=== PATIENT | male | born 1965 | race African-American/Black ===

== ENCOUNTER → 2019-03-24 | Outpatient (CLI) | payer OTHER ==
[~2019-03-24] MED LIST: BACL10TA PO; IOHEXOL 180 MG/ML 10 ML VIAL. ONE; MELO7.5T29 PO; methylPREDNISolone ACETATE 40 MG/ML VIAL. ONE; methylPREDNISolone ACETATE 80 MG/ML VIAL. ONE
--- NOTE | 2019-03-25 09:53 | PAIN ---
DATE OF SERVICE: 03/24/2019 INITIAL CONSULTATION FOR PAIN CLINIC CHIEF COMPLAINT: Low back and bilateral lower extremity pain, right greater than left. 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 The patient reports significant pain in the back since that time on and off in intensity, but responded fairly well to the physical therapy, chiropractic treatment in the past, most recently physical therapy since 2011. He also had trigger point injections, epidural injections as recently as 04/2008, which has done quite well also. The patient reports he is taking baclofen as well as meloxicam, which both do decrease the pain, but only by a moderate extent. The patient reports no loss of motor function in the lower extremities, but significant fatigability, especially of the right lower extremity greater than the left. The patient reports the pain is sharp, stabbing, throbbing in the low back, radiating to the lower back, tingling, numbness, and aching, mostly in the posterior gluteus, posterior lateral thigh, lateral anterior thigh, especially on the right side. The patient reports some on the left as well to the knee, but all the way to the ankle on the right, both anterior and posterior aspect of the lower extremity, mostly in the anterior thigh and posterior gluteus. The patient rates his disability from 0-10, 10 being the worst, is a 7 with family home responsibilities and sexual behavior, 8 with recreation and social activity and occupation as well as self-care activities and 6 with life support activities. The patient did have an MRI scan of the lumbar spine showing significant facet bilaterally at L3-L4 and L4-L5 and lesser extent on the right L2-L3 with L3-L4 generalized bulging in the annulus with moderate pronounced hypertrophic degenerative facet joint changes bilaterally with thickening of ligamentum flavum, L4-L5 shows mild loss of disk height and signal intensity with some generalized bulging of the annulus as well with relatively severe hypertrophic degenerative facet joint changes bilaterally, worse on the right. PAST MEDICAL HISTORY: Significant for dizziness, hearing loss, peptic ulcers. Previous exposure to tuberculosis, cigarette smoking, quit 30 years ago. PREVIOUS SURGERY: No previous surgery. CURRENT MEDICATIONS: Include baclofen and meloxicam. ALLERGIES: THE PATIENT IS ALLERGIC TO TOPICAL IODINE AND ASPIRIN. FAMILY HISTORY: Significant for heart disease. SOCIAL HISTORY: The patient does not smoke, quit many years ago, drinks about 6 alcoholic beverages on the weekend only. Does not use any illegal, illicit, or recreational drugs, is single. Lives locally in [place], [place]. REVIEW OF SYSTEMS: The patient's review of systems is positive for those items mentioned in history of present illness. All systems reviewed and otherwise negative. It is complete, full and well documented on the patient's chart. PHYSICAL EXAMINATION: VITAL SIGNS: The patient's blood pressure is 133/88, pulse 63, respirations 18, temperature 98.3 degrees Fahrenheit. Height is 6 feet 3 inches. Weight 224 pounds. GENERAL: The patient is awake, alert, oriented, appropriate, very pleasant demeanor. HEENT: Shows normocephalic, atraumatic. Extraocular movements are intact and symmetrical. Oral cavity: Mucous membranes moist and pink. Dentition is intact. NECK: Shows anterior throat supple without palpable lymphadenopathy noted. Swallow reflex symmetrical. CHEST: Shows normal on inspection. Breath sounds clear to auscultation bilaterally. HEART: Shows S1, S2 clear. No murmurs auscultated. ABDOMEN: Soft, nontender, nondistended. No palpable organomegaly is noted. No rebound or guarding demonstrated. BACK: Shows spine grossly in the midline. Normal appearing thoracic kyphosis, some minor flattening of lumbar lordotic curvature. Lumbar paraspinous muscle shows symmetrical on inspection, on palpation shows some moderate tenderness throughout the upper, middle and lower distribution of paraspinous muscles, but only diffusely without radiation. The patient has good rotational motion of lumbar spine, both laterally greater than 10 degrees right and left as well as extension greater than 10 degrees, forward flexion 45 degrees without significant pain reported. No tenderness over the spinous processes, sacrum or sacroiliac regions. EXTREMITIES: Lower extremities show deep tendon reflexes at 2+ in the patellar, 1+ tendo-calcaneus tendons. Motor exam is strong with 5/5 dorsiflexion, extension, quadriceps and hamstring flexion symmetrical. Peripheral pulses are 1+ posterior tibia. No peripheral edema is noted bilaterally. Lower extremities are warm and dry to touch, equal in color and appearance. The patient's straight leg raise noted to be mildly positive on the right only about 45 degrees, decreased with knee flexion, left side is negative. Gaenslen's and Roberto's maneuvers are negative bilaterally. Peripheral pulses are 1+ posterior tibia. No peripheral edema is noted. The patient is able to stand, stand on his toes without significant difficulty or loss of balance, walks with a normal appearing gait, but does appear to favor the right lower extremity mildly, not using any assistive devices to ambulate such as canes or walkers. The patient's skin shows warm and dry, good turgor. No edema. No sores, rashes, or bruising. IMPRESSION: 1. This is a 53-year-old male with long history of low back pain, bilateral lower extremity pain, worse now on the right in a radicular fashion, but in the left as well. 2. MRI scan of lumbar spine as noted. 3. History of dizziness. PLAN: Options were discussed with the patient including conservative medical managements, physical therapies and interventional techniques and he would like to pursue interventional techniques as he has done very well with these in the past. We discussed a lumbar epidural steroid injection using description as well as anatomical models to describe the procedure. Risks were then discussed including, but not limited to bleeding, infection, possibility of epidural hematoma, subsequent neurological compromise, dural puncture, headaches, spinal cord and/or nerve damage, side effects of steroid medication and poor results regarding pain control. The patient understands and wished to proceed. The patient will return to the clinic in approximately 2 weeks for followup. He was counseled as to return appointment, activity level and side effects to be aware of. DIAGNOSES: Lumbar radiculopathy with lumbar degenerative disk disease. PROCEDURE: Lumbar epidural steroid injection, translaminar approach at the L4-L5 level using C-arm fluoroscopic guidance under sterile prep and drape using local anesthetic. MEDICATION INJECTED: A total of 120 mg Depo-Medrol plus 10 mL of preservative-free normal saline and 2 mL of contrast. CONDITION AT DISCHARGE: Stable. The patient tolerated procedure well, had no complications. IVETT BLANCHARD MD DR: NII/landry JOB#: [id number] / [id number]
== END ==
LOC: EDSEX 14:07 → PNCL 14:07
PROVIDERS: ATTEND Anesthesiology
DX: M51.16 Intervertebral disc disorders with radiculopathy, lumbar region (principal); K27.7 Chronic peptic ulcer, site unspecified, without hemorrhage or perforation; H91.90 Unspecified hearing loss, unspecified ear; Z87.891 Personal history of nicotine dependence; Z88.8 Allergy status to other drugs, medicaments and biological substances; Z72.89 Other problems related to lifestyle; Z86.11 Personal history of tuberculosis
CPT/HCPCS: 62323; J1030; J1040; Q9965

== ENCOUNTER → 2019-04-07 | Outpatient (CLI) | payer OTHER ==
[~2019-04-07] MED LIST changes: +CHOL500050 PO; -IOHEXOL 180 MG/ML 10 ML VIAL. ONE; -methylPREDNISolone ACETATE 40 MG/ML VIAL. ONE; -methylPREDNISolone ACETATE 80 MG/ML VIAL. ONE
--- NOTE | 2019-04-07 16:54 | PAIN ---
DATE OF SERVICE: 04/07/2019 PROGRESS NOTE FOR PAIN CLINIC DIAGNOSIS: Lumbar radiculopathy with lumbar degenerative disk disease. HISTORY OF PRESENT ILLNESS: The patient is a 53-year-old male who returns for followup status post lumbar epidural steroid injection x 1. The patient reports a 75-80% improvement in his low back and right lower extremity pain. The patient reports he has been increasing his activity with greater ease and comfort, walking greater distances, doing activity. He is doing some physical therapies as well right now and is doing much better. The patient reports that he has been walking and does not awake him up from sleep any longer, sleeping is much better through the night about 6 hours at a time without the pain disturbing. The patient reports his pain is a 9 on a scale of 10 at its worst over the past week, 6 on average, 3 at its least, and is 3 today. The patient reports it is sharp, tingling, burning, radiating into the low back, posterior gluteus, posterolateral thigh, lateral anterior thigh, medial thigh, more on the right than the left, but again significantly reduced with much less intensity than previously. The patient reports no new motor or sensory deficits. No new bowel or bladder incontinence or other complaints. He is still using his TENS unit on his back, which he feels is helpful as well. PHYSICAL EXAMINATION: VITAL SIGNS: Blood pressure 132/90, pulse 69, respirations 18, temperature 98.3 degrees Fahrenheit, weight is 224 pounds. GENERAL: The patient is awake, alert, oriented, appropriate, very pleasant demeanor. HEENT: Shows normocephalic, atraumatic. Extraocular movements are intact and symmetrical. Oral cavity: Mucous membranes moist and pink. Dentition is intact. NECK: Shows anterior throat supple without palpable lymphadenopathy noted. Swallow reflexes symmetrical. CHEST: Shows normal on inspection. Breath sounds are clear bilaterally. HEART: Shows S1, S2 clear. No murmurs auscultated. ABDOMEN: Soft, nontender, nondistended. No palpable organomegaly is noted. No rebound or guarding demonstrated. BACK: Shows spine grossly in midline, normal appearing thoracic kyphosis and lumbar lordotic curvature. Lumbar paraspinal musculature is symmetrical on inspection, with palpation there is some moderate tenderness diffusely bilaterally in the lower lumbar distribution, but only diffusely without significant radiation, slightly more again on the right than the left. The patient has good rotation of motion; however, the lumbar spine both laterally as well as extension and flexion without difficulty. EXTREMITIES: Lower extremity showed deep tendon reflexes 2+ in the patellar, 1+ tendo-calcaneus tendons. Motor exam is 5/5 with dorsiflexion and extension, quadriceps and hamstring flexion equal. Peripheral pulses are 1+ posterior tibia, no peripheral edema is noted bilaterally. Options were discussed with the patient. The patient's old chart was reviewed. His current medication regimen is updated. Current review of systems is updated today as well. We will hold on any further injections at this time by the patient's choice as he is doing much better. We would like to complete his physical therapy and maintain stretching and strengthening exercises and increase activity as tolerated. The patient will return to clinic in approximately 2 weeks for potential reinjection, if not significantly improved after therapy is completed. The patient was given instructions as well as side effects to be aware of from his last injection and will follow up as scheduled. IVETT BLANCHARD MD DR: NII/landry JOB#: [id number] / [id number]
== END | disposition home or self-care (01) ==
LOC: EDSEX → PNCL 10:19
PROVIDERS: ATTEND Anesthesiology
DX: M51.16 Intervertebral disc disorders with radiculopathy, lumbar region (principal)
CPT/HCPCS: G0463

== ENCOUNTER → 2019-04-23 | Outpatient (CLI) | payer OTHER ==
--- NOTE | 2019-04-23 11:37 | PAIN ---
DATE OF SERVICE: 04/23/2019 PROGRESS NOTE FOR PAIN CLINIC DIAGNOSES: Lumbar radiculopathy with lumbar degenerative disk disease. HISTORY OF PRESENT ILLNESS: The patient is a 53-year-old male, who returns for followup status post lumbar epidural steroid injection x 1. The patient reports about 60% plus better in his low back and right lower extremity. The patient reports he still has some pain there, but he is doing much better. He has increased his activity with greater distance walking, greater distances, traveling, doing work activities, household activities with much greater ease and comfort, sleeping better at night, does not awaken him from sleep frequently, occasionally has, but not every night. The patient reports his pain is 8-9 on a scale of 10 at its worst in the past week, 6-7 on average, and 2 at its least and is a 6 today. The patient reports it is sharp, shooting at times, radiating in the low back and right lower extremity. Still in the posterior gluteus, posterior thigh, lateral thigh, anterior thigh, medial lower leg, but again very infrequent at this time and mainly just in the back itself. The patient reports no new motor or sensory deficits, no new bowel or bladder incontinence or other complaints. PHYSICAL EXAMINATION: VITAL SIGNS: The patient's blood pressure 132/87, pulse 64, respirations 18, temperature 98.4 degrees Fahrenheit, height is 6 feet 3 inches and weight is 228 pounds. GENERAL: The patient is awake, alert, oriented, appropriate, very pleasant demeanor. HEENT: Head shows normocephalic, atraumatic. Extraocular movements are intact and symmetrical. Oral cavity: Mucous membranes moist and pink. Dentition is intact. NECK: Shows anterior throat supple without palpable lymphadenopathy noted. Swallow reflex symmetrical. CHEST: Shows normal on inspection. Breath sounds are clear to auscultation bilaterally. HEART: Shows S1, S2 clear. No murmurs auscultated. ABDOMEN: Soft, nontender, nondistended. No palpable organomegaly is noted. No rebound or guarding demonstrated. BACK: Shows spine grossly in the midline. Normal appearing thoracic kyphosis and lumbar lordotic curvature. The patient's back shows good rotational motion of lumbar spine, both laterally as well as extension and flexion without significant difficulty. EXTREMITIES: Lower extremities show deep tendon reflexes 2+ in the patellar, 1+ tendo-calcaneus tendons. Motor exam is strong with 5/5 dorsiflexion, extension, quadriceps and hamstring flexion symmetrical. Peripheral pulses are 1+ posterior tibial. No peripheral edema is noted bilaterally. Options were discussed with the patient. The patient's old chart was reviewed as his current medication regimen updated. Current review of systems updated today as well. We will hold on any further injections at this time by his choice as the patient is doing much better. I would like to see how the pain evolves after doing some physical therapy and continued exercise and strengthening and stretching. The patient will return to clinic at this time on as needed basis, was counseled as to activity level as well as a followup as necessary. IVETT BLANCHARD MD DR: NII/nts JOB#: [id number] / [id number]
== END | disposition home or self-care (01) ==
LOC: PNCL 10:25
PROVIDERS: ATTEND Anesthesiology
DX: M51.16 Intervertebral disc disorders with radiculopathy, lumbar region (principal)
CPT/HCPCS: G0463

== ENCOUNTER → 2019-08-10 | Outpatient (CLI) | payer OTHER ==
[~2019-08-10] MED LIST changes: +IOHEXOL 180 MG/ML 10 ML VIAL. ONE; +methylPREDNISolone ACETATE 40 MG/ML VIAL. ONE; +methylPREDNISolone ACETATE 80 MG/ML VIAL. ONE
--- NOTE | 2019-08-10 12:33 | PAIN ---
DATE OF SERVICE: 08/10/2019 PROGRESS NOTE FOR PAIN CLINIC DIAGNOSIS: Lumbar radiculopathy with lumbar degenerative disk disease. HISTORY OF PRESENT ILLNESS: The patient is a 54-year-old male, who returns for followup status post lumbar epidural steroid injection x 1 on 03/24/2019. The patient did very well with about 60-75% improvement. The patient reports the pain is returning now over about the past month or so in the low back and more in the left lower extremity than the right, but posteriorly in the gluteus bilaterally, posterior thighs and the left calf. The patient reports a 10 on a scale of 10 at its worst over the past week, 8-9 on an average, 5 at its least and is a 5 today. The patient reports it is sharp and shooting, tingling, radiating, worse with walking, standing and changing positions, better with sitting or lying down, awakens him from sleep about every 3-4 hours. The patient reports no new motor or sensory deficits, no new bowel or bladder incontinence or other complaints. PHYSICAL EXAMINATION: VITAL SIGNS: The patient's blood pressure is 137/85, pulse 55, respirations are 18, temperature is 98.2 degrees Fahrenheit, height is 6 feet 3 inches and weight is 219 pounds. GENERAL: The patient is awake, alert, oriented, appropriate, very pleasant demeanor. HEENT: Shows normocephalic, atraumatic. Extraocular movements are intact and symmetrical. Oral cavity: Mucous membranes moist and pink; dentition is intact. NECK: Shows anterior throat supple without palpable lymphadenopathy noted. Swallow reflex symmetrical. CHEST: Shows normal on inspection. Breath sounds clear bilaterally. HEART: Shows S1, S2 clear. ABDOMEN: Soft, nontender and nondistended. BACK: Shows spine grossly in the midline. Normal-appearing thoracic kyphosis and lumbar lordotic curvature. Lumbar paraspinous muscle shows symmetrical on inspection, on palpation shows some moderate tenderness diffusely bilaterally, only diffusely without significant radiation. EXTREMITIES: The patient's lower extremities show deep tendon reflexes at 2+ in the patellar and 1+ tendo-calcaneus tendons. Motor exam is strong with 5/5 dorsiflexion and extension, quadriceps and hamstring flexion symmetrical. Peripheral pulses are 1+ posterior tibial. No peripheral edema is noted bilaterally. Options were discussed with the patient. The patient's old chart was reviewed as his current medication regimen updated. Current review of systems updated today as well. We will proceed with a second in the series of lumbar epidural steroid injection today with fluoroscopic guidance. Risks were again discussed including, but not limited to bleeding, infection, possibility of epidural hematoma, subsequent neurological compromise, dural puncture, headaches, spinal cord and/or nerve damage, side effects of steroid medication and poor results regarding pain control. The patient understands and wished to proceed. The patient will return to clinic in approximately 2 weeks for followup. He was counseled on return appointment, activity level and side effects to be aware of. DIAGNOSIS: Lumbar radiculopathy with lumbar degenerative disk disease. PROCEDURE: Lumbar epidural steroid injection, translaminar approach, the L4-L5 level, using C-arm fluoroscopic guidance under sterile prep and drape using local anesthetic. MEDICATIONS INJECTED: A total of 120 mg of Depo-Medrol plus 10 mL of preservative-free normal saline and 2 mL of contrast. CONDITION AT DISCHARGE: Stable. The patient tolerated the procedure well, had no complications. IVETT BLANCHARD MD DR: NII/landry JOB#: [id number] / [id number]
== END ==
LOC: PNCL 10:01
PROVIDERS: ATTEND Anesthesiology
DX: M51.16 Intervertebral disc disorders with radiculopathy, lumbar region (principal)
CPT/HCPCS: 62323; J1030; J1040; Q9965

== ENCOUNTER → 2020-03-23 | Outpatient (CLI) | payer OTHER ==
--- NOTE | 2020-03-23 11:12 | PDOC ---
Progress Note - Pain Clinic Date of Service: DOS: DATE: 03/23/20 TIME: 11:09 Diagnosis: Dx: Lumbar radiculopathy with lumbar degenerative disc disease History or Present Illness: HPI: 54-year-old male returns for follow-up status post lumbar epidural steroid injections x2, last seen August 10, 2019. Patient reports very well without 75% improvement at the time but the pain is been returning now over the past 2 months or so becoming much worse in the low back and bilateral lower extremities mostly on the left but present bilaterally in the low back rating the posterior gluteus posterior lateral thigh lateral anterior thigh anterior medial thigh and calf on the left side patient which is aching and sharp tingling radiating becoming more constant worse with walking standing changing positions better with sitting or laying down. Reports is a 10 on scale 10 is worst over the past week 9 on average 5 its least and is a 9 today. Patient ports been waking her from sleep frequently body 4 to 5 hours initially was a much better distance walking doing household activities work activities try with greater ease and comfort but now the pain is returning fairly significantly. Reports no new motor or sensory deficits no new bowel or bladder incontinence or other complaints. Physical Exam: VS: Blood pressure is 135/83 pulse 63 respirations 18 temperature 98.2 F height is 6 feet 3 inches weight is 217 pounds PE: PHYSICAL EXAMINATION: GENERAL: The patient is awake, alert, oriented, appropriate, very pleasant demeanor HEENT: Shows normocephalic, atraumatic. Extraocular movements are intact and symmetrical. Oral cavity: Mucous membranes moist and pink. NECK: Shows anterior throat supple without palpable lymphadenopathy noted. Swallow reflex symmetrical. CHEST: Shows normal on inspection. Breath sounds are clear bilaterally, no rales rhonchi or wheezes auscultated bilaterally. HEART: Shows S1, S2 clear. No murmurs auscultated. ABDOMEN: Soft, nontender, nondistended, obese. No palpable organomegaly is noted. No rebound or guarding demonstrated. BACK: Shows spine grossly in the midline. Normal-appearing cervical lordotic curvature. There is slightly increased thoracic kyphosis, some minor flattening of the lumbar lordotic curvature. Lumbar paraspinous muscles show symmetrical on inspection, on palpation shows some moderate tenderness diffusely throughout the upper, middle and lower distribution of the paraspinous muscles bilaterally, but without specific trigger points, without radiation of pain. The patient has good rotational motion of the lumbar spine, both laterally as well as extension and flexion without significant difficulty. No tenderness over the spinous processes, sacrum or sacroiliac regions. EXTREMITIES: Lower extremities show deep tendon reflexes 2+ in the patellar and tendo calcaneus tendons. Motor exam is 5 on a scale of 5 with right dorsifle xion, extension, quadriceps and hamstring flexion and 5/5 on the left. Peripheral pulses are 1+ posterior tibial. No peripheral edema is noted bilaterally. Lower extremities are warm and dry to touch, equal in color and appearance. SKIN: Shows warm and dry, good turgor. No edema. No sores, rashes or bruising throughout. Procedure: Procedure: Options were discussed with the patient. Patient will chart reviews his current medication regimen updated current review of systems updated today as well. We will proceed with a first in a series lumbar epidural steroid injection today with fluoroscopic guidance. Risks were discussed including but not limited to: Bleeding, infection, possibility of epidural hematoma and subsequent neurological compromise, dural puncture, headaches, spinal cord and/or nerve damage, side effects of steroid medication, and poor results regarding pain control. Patient understands wished to proceed. Patient will return to clinic in possibly 2 weeks for follow-up was counseled as to return appointment activity level and side effects to be aware of. Medication Injected: Med Injected: Procedure is lumbar epidural steroid injection under local anesthetic using sterile prep and drape at the L4-5 level using C-arm fluoroscopic guidance in both AP and lateral views medications injected is 120 mg Depo-Medrol + 10 mL preservative-free normal saline and 2 mL contrast- condition at discharge is stable patient tolerated procedure well had no complications. Condition at Discharge: Condition at Discharge: Condition at discharge is stable patient tolerated the procedure well had no complications. IVETT BLANCHARD MD Mar 23, 2020 11:11
== END ==
LOC: PNCL 09:57
PROVIDERS: ATTEND Anesthesiology
DX: M51.16 Intervertebral disc disorders with radiculopathy, lumbar region (principal); Z88.8 Allergy status to other drugs, medicaments and biological substances; Z79.899 Other long term (current) drug therapy
CPT/HCPCS: 62323; J1030; J1040; Q9965

== ENCOUNTER → 2020-04-20 | Outpatient (CLI) | payer OTHER ==
[~2020-04-20] MED LIST changes: -IOHEXOL 180 MG/ML 10 ML VIAL. ONE; -methylPREDNISolone ACETATE 40 MG/ML VIAL. ONE; -methylPREDNISolone ACETATE 80 MG/ML VIAL. ONE
--- NOTE | 2020-04-20 10:09 | PDOC ---
Progress Note - Pain Clinic Date of Service: DOS: DATE: 04/20/20 TIME: 10:06 Diagnosis: Dx: Lumbar radiculopathy with lumbar degenerative disc disease History or Present Illness: HPI: 54-year-old male returns follow-up status post lumbar epidural steroid injection x1 March 23, 2020. Patient reports about 80% improvement in his low back and left lower extremity pain patient reports he is doing much better is increase his activity to greater ease and comfort doing walking distances greater and traveling with greater ease doing work activities household activities all with improved function also sleeping better at night patient ports occasionally the pain awakened from sleep very rarely and only once but every 6 hours if that. Patient reports pain is a 9 on scale 10 is worse over the past week 5 on average to its least and is a 3 today patient which is tingling and stabbing in the low back some sharp pain that shooting only intermittent radiating to the lower extremity some on the right as well but mostly on the left but again improved by about 80% and that is still improved to this day. Patient reports no new motor or sensory deficits no new bowel bladder incontinence or other complaints. Physical Exam: VS: Blood pressure is 122/81 pulse 56 respirations 18 temperature is 98.1 F height is 6 feet 3 inches weight is 222 pounds PE: PHYSICAL EXAMINATION: GENERAL: The patient is awake, alert, oriented, appropriate, very pleasant demeanor HEENT: Shows normocephalic, atraumatic. Extraocular movements are intact and symmetrical. Oral cavity: Mucous membranes moist and pink. Dentition is intact. NECK: Shows anterior throat supple without palpable lymphadenopathy noted. CHEST: Shows normal on inspection. Breath sounds are clear bilaterally. HEART: Shows S1, S2 clear. No murmurs auscultated. ABDOMEN: Soft, nontender, nondistended. BACK: Shows spine grossly in the midline. Normal-appearing cervical lordotic curvature. There is slightly increased thoracic kyphosis, some minor flattening of the lumbar lordotic curvature. Lumbar paraspinous muscles show symmetrical on inspection, on palpation shows some moderate tenderness diffusely throughout the lower distribution of the paraspinous musculature, but without specific trigger points, without radiation of pain. The patient has good rotational motion of the lumbar spine, both laterally as well as extension and flexion without significant difficulty. No tenderness over the spinous processes, sacrum or sacroiliac regions. EXTREMITIES: Lower extremities show deep tendon reflexes 2+ in the patellar and tendo calcaneus tendons. Motor exam is 5 on a scale of 5 with right dorsiflexion, extension, quadriceps and hamstring flexion and 5/5 on the left. Peripheral pulses are 1+ posterior tibial. No peripheral edema is noted bilaterally. SKIN: Shows warm and dry, good turgor. No edema. No sores, rashes or bruising throughout. Procedure: Procedure: Options were discussed with the patient, patient's old chart was reviewed his his current medication regimen updated current review of systems updated today as well. We will hold on any further injections as the patient is doing quite a bit better would like to wait on any further procedures. Patient will continue with increased activity as tolerated stretching and strengthening exercises as well. At this time patient will follow up on as-needed basis. Medication Injected: Med Injected: None Condition at Discharge: Condition at Discharge: Condition at discharge is stable. IVETT BLANCHARD MD Apr 20, 2020 10:09
== END | disposition home or self-care (01) ==
LOC: PNCL 09:43
PROVIDERS: ATTEND Anesthesiology
DX: M51.16 Intervertebral disc disorders with radiculopathy, lumbar region (principal); Z79.899 Other long term (current) drug therapy; Z88.8 Allergy status to other drugs, medicaments and biological substances; Z91.041 Radiographic dye allergy status
CPT/HCPCS: 99212; G0463

== ENCOUNTER → 2020-08-11 | Outpatient (CLI) | payer OTHER ==
[~2020-08-11] MED LIST changes: +IOHEXOL 180 MG/ML 10 ML VIAL. ONE; +methylPREDNISolone ACETATE 40 MG/ML VIAL. ONE; +methylPREDNISolone ACETATE 80 MG/ML VIAL. ONE
--- NOTE | 2020-08-11 08:12 | PDOC ---
Progress Note - Pain Clinic Date of Service: DOS: DATE: 08/11/20 TIME: 08:09 Diagnosis: Dx: Lumbar radiculopathy lumbar degenerative disc disease History or Present Illness: HPI: 55-year-old male returns follow-up status post lumbar epidural steroid injection x1 last on March 23, 2020. Patient reports he did very well about 80% improvement pain is getting to return now in the low back and left lower extremity where he did very well for several months pain is now increasing with activity walking standing changing positions better with sitting or laying down generally does not awaken from sleep at night but over the last week or so it has about every 3-4 hours. Patient reports pain in the low back left lower extremity posterior gluteus some on the right as well but mostly in the left side posterior gluteus lateral thigh anterior thigh medial thigh medial lower leg and into the calf as well on the left and only into the thigh on the right patient reports pain is a 10 on scale 10 is worse over the past week 9 on average 8 its least and is a 9 today. She reports tingling and burning sharp in the low back shooting in the legs especially on the left side and radiating with activity. Patient reports no new motor or sensory deficits no new bowel or bladder incontinence or other complaints. Physical Exam: VS: Blood pressure is 142/89 pulse 74 respirations 18 temperature is 98.6 F height 6 feet 3 inches weight is 242 pounds PE: PHYSICAL EXAMINATION: GENERAL: The patient is awake, alert, oriented, appropriate, very pleasant demeanor HEENT: Shows normocephalic, atraumatic. Extraocular movements are intact and symmetrical. Patient wearing eyeglasses oral cavity: Mucous membranes moist and pink. Dentition is intact. NECK: Shows anterior throat supple without palpable lymphadenopathy noted. Swallow reflex symmetrical. CHEST: Shows normal on inspection. Breath sounds are clear bilaterally, no rales or rhonchi. HEART: Shows S1, S2 clear. No murmurs auscultated. ABDOMEN: Soft, nontender, nondistended, obese. No palpable organomegaly is noted. BACK: Shows spine grossly in the midline. Normal-appearing cervical lordotic curvature. There is slightly increased thoracic kyphosis, some minor flattening of the lumbar lordotic curvature. Lumbar paraspinous muscles show symmetrical on inspection, on palpation shows some moderate tenderness diffusely throughout the upper, middle and lower distribution of the paraspinous muscles without specific trigger points, without radiation of pain. The patient has good rotational motion of the lumbar spine, both laterally as well as extension and flexion without significant difficulty. No tenderness over the spinous processes, sacrum or sacroiliac regions. EXTREMITIES: Lower extremities show deep tendon reflexes 2+ in the patellar and tendo calcaneus tendons. Motor exam is 5 on a scale of 5 with right dorsiflexion, extension, quadriceps and hamstring flexion and 5/5 on the left. Peripheral pulses are 1+ posterior tibial. No peripheral edema is noted bilaterally. Lower extremities are warm and dry to touch, equal in color and appearance. SKIN: Shows warm and dry, good turgor. No edema. No sores, rashes or bruising throughout. Procedure: Procedure: Options discussed with patient. Patient's old chart was reviewed; his current medication regimen updated; current review of systems updated today as well. We will proceed with a second in a series lumbar epidural steroid traction table fluoroscopic guidance. Risks were discussed including but not limited to: Bleeding, infection, possibility of epidural hematoma and subsequent neurological compromise, dural puncture, headaches, spinal cord and/or nerve damage, side effects of steroid medication, and poor results regarding pain control. Patient understands and wished to proceed. Patient will return to clinic in approximate 2 weeks for follow-up, was counseled as return appointment, activity level, and side effects to be aware of. Medication Injected: Med Injected: Procedure is lumbar epidural steroid injection under local anesthetic using sterile prep and drape at the L4-5 level using C-arm fluoroscopic guidance in both AP and lateral views medications injected is 120 mg Depo-Medrol + 10 mL preservative-free normal saline and 2 mL contrast- condition at discharge is stable patient tolerated procedure well had no complications. Condition at Discharge: Condition at Discharge: Condition at discharge stable, patient tolerated the procedure well and had no complications. IVETT BLANCHARD MD Aug 11, 2020 08:12
--- NOTE | 2020-08-11 08:13 | PDOC4 ---
PROCEDURE Procedure Patient was consented for lumbar epidural steroid injection. Risks were dis cussed including but not limited to: Bleeding, infection, possibility of epidural hematoma and subsequent neurological compromise, dural puncture, headaches, spinal cord and/or nerve damage, side effects of steroid medication, and poor results regarding pain control. Patient understands and wished to proceed. Procedure is lumbar epidural steroid injection under local anesthetic using sterile prep and drape at the L4-5 level using C-arm fluoroscopic guidance in both AP and lateral views medications injected is 120 mg Depo-Medrol + 10 mL preservative-free normal saline and 2 mL contrast- condition at discharge is stable patient tolerated procedure well had no complications. IVETT BLANCHARD MD Aug 11, 2020 08:13
== END | disposition home or self-care (01) ==
LOC: PNCL 07:36
PROVIDERS: ATTEND Anesthesiology
DX: M51.16 Intervertebral disc disorders with radiculopathy, lumbar region (principal); Z79.899 Other long term (current) drug therapy; Z91.041 Radiographic dye allergy status; Z88.8 Allergy status to other drugs, medicaments and biological substances
CPT/HCPCS: 62323; J1030; J1040; Q9965; 77002

== ENCOUNTER → 2021-07-10 | Outpatient (CLI) | payer OTHER ==
[~2021-07-10] MED LIST changes: -methylPREDNISolone ACETATE 40 MG/ML VIAL. ONE
--- NOTE | 2021-07-10 11:03 | PDOC ---
Progress Note - Pain Clinic Date of Service: DOS: DATE: 07/10/21 TIME: 10:59 Diagnosis: Dx: Lumbar radiculopathy with lumbar degenerative disc disease History or Present Illness: HPI: 56-year-old male returns for follow-up last seen August 2020 patient did very well after lumbar epidural steroid injection, patient reports that it was about 75% improved at the time patient reports he did very well for several months the pain began to return and is now mostly in the left lower extremity posterior gluteus lateral thigh anterior thigh medial thigh medial lower leg also in the posterior calf on the left side worse with walking standing changing positions patient reports he has been suffering with the pain waiting for preauthorization with his insurance provider through [facility] to get treatment. Patient reports pain is a 10 on scale 10 is worse over the past week 8 on average 6 its least is a 7 today patient reports that sharp in the back tingling in the legs the left leg becomes tingly and numb he can generally stop standing or walking and decrease the pain significantly much worse with walking standing changing positions better with sitting or laying down patient reports does awaken from sleep about every 4-5 hours however he can usually reposition and get back to sleep without too much difficulty. Patient reports no loss of motor function but some constipation recently. Patient reports no bowel or bladder incontinence. Patient reports pain in the right leg occasionally but mostly focused on the left leg and worse with activity. Physical Exam: VS: Blood pressure is 136/89 pulse 73 respirations 18 temperature 98.9 F weight is 222 pounds. PE: PHYSICAL EXAMINATION: GENERAL: The patient is awake, alert, oriented, appropriate, very pleasant in demeanor HEENT: Shows normocephalic, atraumatic. Extraocular movements are intact and symmetrical. Oral cavity: Mucous membranes moist and pink. Dentition is intact. NECK: Shows anterior throat supple without palpable lymphadenopathy noted. Swallow reflex symmetrical. CHEST: Shows normal on inspection. Breath sounds are clear bilaterally, distant and coarse but no rales rhonchi or wheezes auscultated. HEART: Shows S1, S2 clear. No murmurs auscultated. ABDOMEN: Soft, nontender, nondistended. No palpable organomegaly is noted. BACK: Shows spine grossly in the midline. Normal-appearing cervical lordotic curvature. There is slightly increased thoracic kyphosis, some flattening of the lumbar lordotic curvature. Lumbar paraspinous muscles show symmetrical on inspection, on palpation shows some moderate tenderness diffusely throughout the upper, middle and lower distribution of the paraspinous muscles without specific trigger points, without radiation of pain. The patient has good rotational motion of the lumbar spine, both laterally as well as extension and flexion without significant difficulty. No tenderness over the spinous processes, sacrum or sacroiliac regions. EXTREMITIES: Lower extremities show deep tendon reflexes 2 in the patellar and tendo calcaneus tendons. Motor exam is 5 on a scale of 5 with right dorsiflexion, extension, quadriceps and hamstring flexion and 4/5 on the left. Peripheral pulses are 1+ posterior tibial. No peripheral edema is noted bilaterally. Lower extremities are warm and dry to touch, equal in color and appearance. SKIN: Shows warm and dry, good turgor. No edema. No sores, rashes or bruising throughout. Procedure: Procedure: Options were discussed with patient. Patient's old chart was reviewed as his current medication regimen updated current review of systems updated today as well. We will proceed with a lumbar epidural steroid injection today with fluoroscopic guidance. Risks were discussed including but not limited to: Bleeding, infection, possibility of epidural hematoma and subsequent neurological compromise, dural puncture, headaches, spinal cord and/or nerve damage, side effects of steroid medication, and poor results regarding pain control. Patient understands and wished to proceed. Patient will return to clinic in approximately 2 weeks for follow-up, was counseled as to return appoi ntment, activity level, and side effect to be aware of. Medication Injected: Med Injected: Procedure is lumbar epidural steroid injection under local anesthetic using sterile prep and drape at the L4-5 level using C-arm fluoroscopic guidance in both AP and lateral views medications injected is 120 mg Depo-Medrol +10mL preservative-free normal saline and 2 mL contrast- condition at discharge is stable patient tolerated procedure well had no complications. Condition at Discharge: Condition at Discharge: Condition at discharge stable, paced tolerated procedure well and had no complications. IVETT BLANCHARD MD Jul 10, 2021 11:03
--- NOTE | 2021-07-10 11:03 | PDOC4 ---
Procedure Note: ICD 10 Code: ICD 10 Code: M54.16 M51.36 Procedure Note: Patient was consented for lumbar epidural steroid injection with fluoroscopic guidance. Risks were discussed including but not limited to: Bleeding, infection, possibility of epidural hematoma and subsequent neurological compromise, dural puncture, headaches, spinal cord and/or nerve damage, side effects of steroid medication, and poor results regarding pain control. Patient understands and wished to proceed. Procedure is lumbar epidural steroid injection under local anesthetic using sterile prep and drape at the L4-5 level using C-arm fluoroscopic guidance in both AP and lateral views medications injected is 120 mg Depo-Medrol +10mL preservative-free normal saline and 2 mL contrast- condition at discharge is stable patient tolerated procedure well had no complications. IVETT BLANCHARD MD Jul 10, 2021 11:03
== END | disposition home or self-care (01) ==
LOC: PNCL 10:29
PROVIDERS: ATTEND Anesthesiology
DX: M51.16 Intervertebral disc disorders with radiculopathy, lumbar region (principal); Z79.899 Other long term (current) drug therapy; Z91.041 Radiographic dye allergy status; Z88.8 Allergy status to other drugs, medicaments and biological substances
CPT/HCPCS: 62323; J1040; Q9965